=== PATIENT | male | born 1990 | race African-American/Black ===

== ENCOUNTER 2019-12-29 20:49 | Emergency (ER) | payer OTHER ==
[~2019-12-29] VITALS: Ht 165.1 cm; Wt 110.7 kg
[2019-12-29 21:10] VITALS: TEMP 98.1
[2019-12-29 22:20] VITALS: BP 135/76
== END 2019-12-29 22:33 | disposition home or self-care (01) ==
LOC: ED 20:49
PROC: 0HQFXZZ Repair Right Hand Skin, External Approach (ICD-10-PCS; principal; 2019-12-29)
DX: S61.214A Laceration without foreign body of right ring finger without damage to nail, initial encounter (principal); W31.9XXA Contact with unspecified machinery, initial encounter; Y92.69 Other specified industrial and construction area as the place of occurrence of the external cause
CPT/HCPCS: 99283